=== PATIENT | female | born 1970 | race Caucasian/White ===

== ENCOUNTER 2016-10-07 19:34 | Emergency (ER) | payer BC ==
[~2016-10-07] VITALS: Ht 175.3 cm; Wt 113.4 kg
[~2016-10-07 19:34] MED LIST: ASP81TEC PO; ATOR10TA66; CCLB10TRX; CEPH500C PO; CYCL10TA9 PO; ETD400T; IBP800T PO; MECL12.579 PO; METO-351 PO; NAPR500T PO; OMEG500C PO; PANT40TA2 PO; PHENTERMINE 37.5 MG; PREMPRO; SANCTURA; SULF1TAB38; SULF1TAB38 PO; TRAM100T PO; TRM50T PO
[2016-10-07] MEDS ORDERED: NS IV 1000 ML 1,000 ML IV ONE (20:12)
[2016-10-07] MEDS ORDERED: KETOROLAC 30 MG/ML VIAL IVP ONE (20:15)
[2016-10-07] MEDS ORDERED: ONDANSETRON 4 MG/2 ML (SDV) Z0FRAN IVP ONE (20:15)
[2016-10-07 20:56] LABS: BASOPHILS % (AUTO) 1 % (0-10); EOSINOPHILS % (AUTO) 1 % (0-10); LYMPHOCYTES # (AUTO) 0.6 X 10^3 (1.0-4.0); LYMPHOCYTES % (AUTO) 16 % (12-44); MEAN CORPUSCULAR HEMOGLOBIN 30 PG (25-34); MEAN CORPUSCULAR HGB CONC 35 G/DL (32-36); MEAN CORPUSCULAR VOLUME 86 FL (80-99); MEAN PLATELET VOLUME 10.2 FL (7.4-10.4); MONOCYTES # (AUTO) 0.5 X 10^3 (0.0-1.0); MONOCYTES % (AUTO) 12 % (0-12); NEUTROPHILS # (AUTO) 2.8 X 10^3 (1.8-7.8); NEUTROPHILS % (AUTO) 72 % (42-75); PLATELET COUNT 191 10^3/uL (130-400); RED BLOOD COUNT 5.09 10^6/uL (4.35-5.85); RED CELL DISTRIBUTION WIDTH 12.5 % (10.0-14.5)
[2016-10-07] MEDS ORDERED: RX-OSELTAMIVIR 75 MG (TAMIFLU) BOX OF 10 PO STA (21:01)
--- NOTE | 2016-10-07 21:07 | ED General ---
General Chief Complaint: Fever-Adult/Adol Stated Complaint: NAUSEA/FEVER Nursing Triage Note: PT REPORTS NOT FEELING WELL SINCE YESTERDAY. SHE STATES SHE BEGAN HAVING FEVER, MALAISE, AND NAUSEA. SHE C/O SORE THROAT AND "CLOGGED EARS". PT HAS NOT TAKING ANY ANTIPYRETICS. Nursing Sepsis Screen: No Definite Risk Source of Information: Patient Exam Limitations: No Limitations History of Present Illness Time Seen by Provider: 19:54 Initial Comments This 46 woman presents to the emergency room with flulike syndrome including headache, nausea, dizziness, sore throat, fever, fatigue, cough, congestion, dyspnea, and vomiting. She denies diarrhea. She took Robitussin yesterday and a generic cough syrup today. She has not had much relief. She feels dehydrated. Allergies and Home Medications Allergies Coded Allergies: adhesive tape (Verified Allergy, Intermediate, RASH, 05/16/16) hydrocodone (Verified Adverse Reaction, Mild, N/V, 10/16/06) Home Medications Metoprolol Succinate 25 Mg Tab.er.24h, 25 MG PO DAILY, #30 Ref 3 Prescribed by: STEFANIA SHARMA on 04/01/16 1344 Pantoprazole Sodium 40 Mg Tablet.dr, 40 MG PO DAILY, #30 Ref 5 Prescribed by: MEGA ALFONSO on 05/20/16 0840 Constitutional: see HPI EENTM: see HPI Respiratory: see HPI Cardiovascular: no symptoms reported Gastrointestinal: see HPI Genitourinary: no symptoms reported Musculoskeletal: muscle pain Skin: no symptoms reported Psychiatric/Neurological: See HPI Hematologic/Lymphatic: No Symptoms Reported Past Wsuadgx-Pfpcce-Aunbck Hx Patient Social History Alcohol Use: Denies Use Recreational Drug Use: No Smoking Status: Current Everyday Smoker Type Used: Cigarettes 2nd Hand Smoke Exposure: No Recent Foreign Travel: No Contact w/Someone Who Travel: No Recent Infectious Disease Expo: No Recent Hopitalizations: No Immunizations Up To Date Tetanus Booster (TDap): Unknown PED Vaccines UTD: Yes Seasonal Allergies Seasonal Allergies: No Surgeries HX Surgeries: Yes (STENTS-KIDNEY STONES) Surgeries: Appendectomy, Cardiac (cardiac catheter), Gallbladder, Hysterectomy , Renal (ureteral stents), Tubal Ligation Respiratory Hx Respiratory Disorders: No Cardiovascular Hx Cardiac Disorders: Yes ("irregular heartbeat") Cardiac Disorders: Hypertension Neurological Hx Neurological Disorders: No Reproductive System Hx Reproductive Disorders: No Sexually Transmitted Disease: No HIV/AIDS: No Female Reproductive Disorders: Denies, 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 Genitourinary Hx Genitourinary Disorders: Yes Genitourinary Disorders: Kidney Stones Gastrointestinal Hx Gastrointestinal Disorders: Yes Gastrointestinal Disorders: Gastroesophageal Reflux Musculoskeletal Hx Musculoskeletal Disorders: Yes Musculoskeletal Disorders: Chronic Back Pain Endocrine Hx Endocrine Disorders: No HEENT HX ENT Disorders: Yes (CONTACTS/GLASSES, DENTURES) Loss of Vision: Bilateral Hearing Impairment: Denies Cancer Hx Cancer: No Psychosocial Hx Psychiatric Problems: No Integumentary HX Skin/Integumentary Disorder: No Blood Transfusions Hx Blood Disorders: No Adverse Reaction to a Blood Tr: No (N/A) Family Medical History Significant Family History: No Pertinent Family Hx Family Medial History: Cardiovascular disease 19 FATHER 19 MOTHER Diabetes mellitus 19 FATHER 19 MOTHER Physical Exam Vital Signs Vital Sign - Last 12Hours 10/07/16 19:45 Temp 102.0 Pulse 97 Resp 20 B/P (MAP) 146/94 Pulse Ox 93 O2 Delivery Room Air Capillary Refill : Less Than 3 Seconds General Appearance: WD/WN, Mild Distress (generally ill-appearing) HEENT: PERRL/EOMI, TMs Normal, Normal ENT Inspection, Pharynx Normal Neck: Normal Inspection Respiratory: Lungs Clear, Normal Breath Sounds, No Accessory Muscle Use, No Respiratory Distress Cardiovascular: Regular Rate, Rhythm, No Edema, No Murmur Gastrointestinal: Normal Bowel Sounds, Non Tender, Soft Extremity: Normal Inspection, No Pedal Edema Neurologic/Psychiatric: Alert, Oriented x3, No Motor/Sensory Deficits, Normal 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, 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 Skin: Normal Color, Warm/Dry Progress/Results/Core Measures Results/Orders Lab Results Laboratory Tests Test 10/07/16 20:10 10/07/16 20:49 Range/Units Group A Streptococcus Screen NEGATIVE NEGATIVE White Blood Count 4.0 L 4.3-11.0 10^3/uL Red Blood Count 5.09 4.35-5.85 10^6/uL Hemoglobin 15.2 11.5-16.0 G/DL Hematocrit 44 35-52 % Mean Corpuscular Volume 86 80-99 FL Mean Corpuscular Hemoglobin 30 25-34 PG Mean Corpuscular Hemoglobin Concent 35 32-36 G/DL Red Cell Distribution Width 12.5 10.0-14.5 % Platelet Count 191 130-400 10^3/uL Mean Platelet Volume 10.2 7.4-10.4 FL Neutrophils (%) (Auto) 72 42-75 % Lymphocytes (%) (Auto) 16 12-44 % Monocytes (%) (Auto) 12 0-12 % Eosinophils (%) (Auto) 1 0-10 % Basophils (%) (Auto) 1 0-10 % Neutrophils # (Auto) 2.8 1.8-7.8 X 10^3 Lymphocytes # (Auto) 0.6 L 1.0-4.0 X 10^3 Monocytes # (Auto) 0.5 0.0-1.0 X 10^3 Eosinophils # (Auto) 0.0 0.0-0.3 10^3/uL Basophils # (Auto) 0.0 0.0-0.1 10^3/uL Sodium Level 136 135-145 MMOL/L Potassium Level 4.2 3.6-5.0 MMOL/L Chloride Level 102 98-107 MMOL/L Carbon Dioxide Level 24 21-32 MMOL/L Anion Gap 10 5-14 MMOL/L Blood Urea Nitrogen 13 7-18 MG/DL Creatinine 0.95 0.60-1.30 MG/DL Estimat Glomerular Filtration Rate > 60 BUN/Creatinine Ratio 14 Glucose Level 111 H 70-105 MG/DL Calcium Level 9.5 8.5-10.1 MG/DL Total Bilirubin 0.7 0.1-1.0 MG/DL Aspartate Amino Transf (AST/SGOT) 25 5-34 U/L Alanine Aminotransferase (ALT/SGPT) 39 0-55 U/L Alkaline Phosphatase 63 40-136 U/L Total Protein 7.5 6.4-8.2 G/DL Albumin 4.6 H 3.2-4.5 G/DL Micro Results Microbiology 10/07/16 Influenza Types A,B Antigen (JERMAINE) - Final, Complete My Orders Orders - DELISA ÁLVAREZ MD Cbc With Automated Diff (10/07/16 20:12) Comprehensive Metabolic Panel (10/07/16 20:12) Rapid Strep A Screen (10/07/16 20:12) Influenza A And B Antigens (10/07/16 20:12) Saline Lock/Iv-Start (10/07/16 20:12) Ns Iv 1000 Ml (Sodium Chloride 0.9%) (10/07/16 20:12) Ketorolac Injection (Toradol Injection) (10/07/16 20:15) Ondansetron Injection (Zofran Injectio (10/07/16 20:15) Chest Pa/Lat (2 View) (10/07/16 20:12) Rx-Oseltamivir Caps (Rx-Tamiflu Caps) (10/07/16 21:01) Rx-Ondansetron Po (Rx-Zofran Po) (10/07/16 21:15) Medications Given in ED Current Medications Medications Dose Ordered Sig/Rachael Route Start Time Stop Time Status Last Admin Dose Admin Ketorolac Tromethamine 30 mg ONCE ONCE IVP 10/07/16 20:15 10/07/16 20:18 DC 10/07/16 20:38 30 MG Ondansetron HCl 4 mg ONCE ONCE IVP 10/07/16 20:15 10/07/16 20:18 DC 10/07/16 20:38 4 MG Ondansetron HCl 4 mg Q4HR PRN SL 10/07/16 21:15 10/07/16 21:47 DC 10/07/16 21:30 4 MG Sodium Chloride 1,000 ml @ 0 mls/hr Q0M ONCE IV 10/07/16 20:12 10/07/16 20:18 DC 10/07/16 20:38 0 MLS/HR Vital Signs/I&O Vital Sign - Last 12Hours 10/07/16 19:45 Temp 102.0 Pulse 97 Resp 20 B/P (MAP) 146/94 Pulse Ox 93 O2 Delivery Room Air Blood Pressure Mean: 111 Progress Note : Progress Note Patient received a liter of IV fluids for hydration. Toradol was given for myalgia. Influenza screen was positive for influenza B. Tamiflu was initiated and a take-home pack was dispensed. A take-home packet of Zofran was also dispensed. Diagnostic Imaging Diagonstic Imaging: Xray Plain Films/CT/US/NM/MRI: chest Comments Chest x-ray viewed by me and report reviewed. See report below: NAME: [facility] REC#: [id number] PT STATUS: REG ER : 1970 PHYSICIAN: DELISA ÁLVAREZ MD ADMIT DATE: 10/07/16/ER Signed Date of Exam: 10/07/16 CHEST PA/LAT (2 VIEW) INDICATION: Fever, cough and malaise. EXAM: PA and lateral chest obtained at 8:54 hours p.m. FINDINGS: The heart and mediastinal silhouette are normal in appearance. The lungs are clear. There is no pneumothorax or pleural fluid. IMPRESSION: Negative chest. Dictated by: Dictated on workstation # [id number] Dict: 10/07/162107 Trans: 10/07/162118 [facility] [id number] Interpreted by: PO SÁNCHEZ MD Electronically signed by:PO SÁNCHEZ MD 10/07/162118 Departure Impression Impression: Primary Impression: Influenza B Additional Impression: Nausea and vomiting Qualified Codes: R11.2 - Nausea with vomiting, unspecified Disposition: HOME, SELF-CARE Condition: Improved Departure-Patient Inst. Decision time for Depature: 21:05 Referrals: RADHA FONTANA MD (PCP/Family) Primary Care Physician Patient Instructions: Flu, Adult (DC) Add. Discharge Instructions: Drink plenty of clear liquids. Complete the entire 5 day course of Tamiflu. Use Zofran (ondansetron) dissolved under the tongue every 4 hours as needed for nausea and vomiting. Avoid contact with other people until symptoms, especially fever, resolved. Return to emergency room if you have worsening symptoms. You may use ibuprofen up to 600 mg every 6 hours as needed for pain or fever. Add Tylenol (acetaminophen) up to 1000 mg every 6 hours as needed for additional pain or fever relief. All discharge instructions reviewed with patient and/or family. Voiced understanding. Work/School Note: Work Release Form Date Seen in the Emergency Department: Oct 07, 2016 Return to Work: Oct 13, 2016 DELISA ÁLVAREZ MD Oct 07, 2016 21:07
--- NOTE | 2016-10-07 21:10 | Diagnostic Imaging Report ---
INDICATION: Fever, cough and malaise. EXAM: PA and lateral chest obtained at 8:54 hours p.m. FINDINGS: The heart and mediastinal silhouette are normal in appearance. The lungs are clear. There is no pneumothorax or pleural fluid. IMPRESSION: Negative chest. Dictated by: Dictated on workstation # [id number]
[2016-10-07] MEDS ORDERED: RX-ONDANSETRON 4 MG ODT (ZOFRAN) PPK #4 SL PRN (21:15)
[2016-10-07 21:17] LABS: ALANINE AMINOTRANSFERASE 39 U/L (0-55); ALBUMIN 4.6 G/DL (3.2-4.5); ANION GAP 10 MMOL/L (5-14); ASPARTATE AMINO TRANSFERASE 25 U/L (5-34); BILIRUBIN,TOTAL 0.7 MG/DL (0.1-1.0); BLOOD UREA NITROGEN 13 MG/DL (7-18); BUN/CREATININE RATIO 14; CALCIUM 9.5 MG/DL (8.5-10.1); CARBON DIOXIDE 24 MMOL/L (21-32); CHLORIDE 102 MMOL/L (98-107); CREATININE SERUM 0.95 MG/DL (0.60-1.30); GFR ESTIMATED > 60; GLUCOSE 111 MG/DL (70-105); POTASSIUM 4.2 MMOL/L (3.6-5.0); SODIUM 136 MMOL/L (135-145); TOTAL PROTEIN 7.5 G/DL (6.4-8.2)
[2016-10-07 21:35] VITALS: BP 146/94
== END 2016-10-07 21:35 | disposition home or self-care (01) ==
LOC: EDUNIT# 19:34 → ER 19:37
DX: J10.1 Influenza due to other identified influenza virus with other respiratory manifestations (principal); I10 Essential (primary) hypertension; F17.210 Nicotine dependence, cigarettes, uncomplicated
CPT/HCPCS: 36415; 71020; 80053; 85025; 87430; 87804; 96361; 96374; 96375

== ENCOUNTER 2017-08-11 21:00 | Emergency (ER) | payer BC ==
[~2017-08-11] VITALS: Ht 175.3 cm; Wt 113.5 kg
[~2017-08-11 21:00] MED LIST changes: +NAPR-1071 PO; -NAPR500T PO
--- NOTE | 2017-08-11 21:26 | ED Lower Extremity ---
General Chief Complaint: Lower Extremity Stated Complaint: L HEEL PAIN, SWELLING History of Present Illness Date Seen by Provider: Aug 11, 2017 Time Seen by Provider: 21:19 Initial Comments Patient here with complaints of pain to the arch of her left foot for 3 months. Patient denies injury, reports increased pain with exercises for plantar fasciitis. Onset: other (3 months) Pain/Injury Location: left foot Method of Injury: unknown Modifying Factors: Improves With Cold Therapy, Worse With Movement, Improves With Rest Allergies and Home Medications Allergies Coded Allergies: adhesive tape (Verified Allergy, Intermediate, RASH, 05/16/16) hydrocodone (Verified Adverse Reaction, Mild, N/V, 10/16/06) Home Medications Metoprolol Succinate 25 Mg Tab.er.24h, 25 MG PO DAILY, #30 Ref 3 Prescribed by: STEFANIA SHARMA on 04/01/16 1344 Pantoprazole Sodium 40 Mg Tablet.dr, 40 MG PO DAILY, #30 Ref 5 Prescribed by: MEGA ALFONSO on 05/20/16 0840 Constitutional: no symptoms reported, see HPI EENTM: see HPI, no symptoms reported Respiratory: no symptoms reported, see HPI Cardiovascular: no symptoms reported, see HPI, other (history of a murmur) Genitourinary: no symptoms reported Musculoskeletal: other (pain to the arch of the left foot) Skin: no symptoms reported, see HPI Psychiatric/Neurological: No Symptoms Reported, See HPI Past Rstejbm-Pydvsx-Loeunj Hx Patient Social History Type Used: Cigarettes 2nd Hand Smoke Exposure: No Recent Foreign Travel: No Contact w/Someone Who Travel: No Recent Hopitalizations: No Immunizations Up To Date Tetanus Booster (TDap): Unknown PED Vaccines UTD: Yes Seasonal Allergies Seasonal Allergies: No Surgeries Surgeries: Appendectomy, Cardiac, Gallbladder, Hysterectomy, Renal, Tubal Ligation Respiratory Currently Using CPAP: No Currently Using BIPAP: No Cardiovascular Cardiac Disorders: Hypertension Reproductive System Hx Reproductive Disorders: No Sexually Transmitted Disease: No HIV/AIDS: No Female Reproductive Disorders: Denies, 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 Genitourinary Genitourinary Disorders: Kidney Stones Gastrointestinal Gastrointestinal Disorders: Gastroesophageal Reflux Musculoskeletal Musculoskeletal Disorders: Chronic Back Pain HEENT Loss of Vision: Bilateral Hearing Impairment: Denies Blood Transfusions Adverse Reaction to a Blood Tr: No (N/A) Family Medical History Significant Family History: No Pertinent Family Hx Family Medial History: Cardiovascular disease 19 FATHER 19 MOTHER Diabetes mellitus 19 FATHER 19 MOTHER Physical Exam Vital Signs Capillary Refill : General Appearance: WD/WN, no apparent distress HEENT: PERRL/EOMI Cardiovascular: normal peripheral pulses, regular rate, rhythm, systolic murmur Respiratory: normal breath sounds, no respiratory distress Gastrointestinal: normal bowel sounds, non tender Back: normal inspection, no CVA tenderness, no vertebral tenderness Feet: left foot pain (pain to the medial side of the left plantar area), left foot soft tissue tenderness Neurologic/Tendon: normal sensation, normal motor functions (physical exam pulse low as pain to the medial side), normal tendon functions Neurologic/Psychiatric: no motor/sensory deficits, alert, normal mood/affect, oriented x 3 Skin: normal color, warm/dry Lymphatic: no adenopathy Progress/Results/Core Measures Results/Orders My Orders Orders - SUNSHINE ARANDA APRN Foot, Left, 3 Views (08/11/17 21:18) Departure Impression Impression: Primary Impression: Plantar fasciitis Disposition: HOME, SELF-CARE Condition: Stable (tripped) Departure-Patient Inst. Decision time for Depature: 21:35 Referrals: RADHA FONTANA MD (PCP/Family) Primary Care Physician Patient Instructions: Heel Pain (Caused by Plantar Fasciitis) Add. Discharge Instructions: Take steroids as directed. Call for appointment time with one of our store receiving specialist Dr. Baird or Dr. Bergman for appointment. Continue your exercises. Obtain shoe inserts for arch support. All discharge instructions reviewed with patient and/or family. Voiced understanding. Scripts Methylprednisolone (Medrol) 4 Mg Tab.ds.pk 4 MG PO UD, #1 PKG Prov: SUNSHINE ARANDA APRN 08/11/17 SUNSHINE ARANDA APRN Aug 11, 2017 21:26
[2017-08-11] MEDS ORDERED: METH4TAB PO (21:34)
--- NOTE | 2017-08-11 21:35 | Diagnostic Imaging Report ---
INDICATION: Medial left foot pain for several days. FINDINGS: Three views of the left foot show no fracture, dislocation or other abnormality. IMPRESSION: Normal left foot. Dictated by: Dictated on workstation # [id number]
[2017-08-11 21:45] VITALS: BP 148/84
== END 2017-08-11 21:45 | disposition home or self-care (01) ==
LOC: EDUNIT# 21:00 → ER 21:01
DX: M72.2 Plantar fascial fibromatosis (principal); I10 Essential (primary) hypertension; K21.9 Gastro-esophageal reflux disease without esophagitis; Z82.49 Family history of ischemic heart disease and other diseases of the circulatory system; Z87.442 Personal history of urinary calculi; Z88.5 Allergy status to narcotic agent; Z91.048 Other nonmedicinal substance allergy status; Z90.49 Acquired absence of other specified parts of digestive tract; Z98.51 Tubal ligation status; Z90.710 Acquired absence of both cervix and uterus
CPT/HCPCS: 73630; 99283

== ENCOUNTER → 2018-03-15 | Outpatient (CLI) | payer BC ==
[~2018-03-15] MED LIST changes: +METH4TAB PO
--- NOTE | 2018-03-15 19:15 | Diagnostic Imaging Report ---
INDICATION: Hypothyroidism. FINDINGS: Right lobe of the thyroid measures 4.2 x 1.5 x 1.3 cm. Left lobe measures 4.4 x 1.4 x 1.3 cm. There is no discrete mass in either lobe. IMPRESSION: Unremarkable thyroid ultrasound. Dictated by: Dictated on workstation # [id number]
== END ==
LOC: RAD 15:07
PROVIDERS: ATTEND Nurse Practitioner Family
DX: E03.9 Hypothyroidism, unspecified (principal)
CPT/HCPCS: 76536

== ENCOUNTER 2019-06-05 12:28 | Emergency (ER) | payer BC ==
[~2019-06-05] VITALS: Ht 175 cm; Wt 109.5 kg
--- NOTE | 2019-06-05 13:11 | ED Lower Extremity ---
General Chief Complaint: Lower Extremity Stated Complaint: L CALF PAIN Nursing Triage Note: Patient ambulatory to ER FT1 with spouse with complaint of left lower leg pain. Patient states approximately 1 week ago she had spasms to the left lower leg and then noticed a bruise behind her knee with a hard lump. She has had increased pain to the left lower leg over the last several days. Nursing Sepsis Screen: No Definite Risk Source: patient, spouse Exam Limitations: no limitations History of Present Illness Date Seen by Provider: Jun 05, 2019 Time Seen by Provider: 13:11 Initial Comments 41-year-old female patient presents with complaints of left lateral knee pain. Patient reports one week ago she began having spasms in the left calf followed by a bruising to the left posterior knee and calf. Reports feeling a large lump which has improved in size and discoloration. Patient does complain of increased pain to this area. Denies known injury. Denies claudication. Location Injury Occurred: denies known injury Onset: last week Pain/Injury Location: left leg, left knee Method of Injury: unknown Modifying Factors: Worse With Movement, Worse With Other (worse with palpation) Allergies and Home Medications Allergies Coded Allergies: adhesive tape (Verified Allergy, Intermediate, RASH, 05/16/16) hydrocodone (Verified Adverse Reaction, Mild, N/V, 10/16/06) Home Medications Methylprednisolone 4 Mg Tab.ds.pk, 4 MG PO UD Prescribed by: SNUSHINE ARANDA on 08/11/172133 Metoprolol Succinate 25 Mg Tab.er.24h, 25 MG PO DAILY Prescribed by: STEFANIA SHARMA on 04/01/16 1344 Pantoprazole Sodium 40 Mg Tablet.dr, 40 MG PO DAILY Prescribed by: MEGA ALFONSO on 05/20/16 0840 Patient Home Medication List Home Medication List Reviewed: Yes Review of Systems Constitutional: No chills, No dizziness, No fever Respiratory: No cough, No dyspnea on exertion, No orthopnea, No short of breath, No wheezing Cardiovascular: No chest pain, No edema, No palpitations, No syncope Gastrointestinal: no symptoms reported Genitourinary: no symptoms reported Musculoskeletal: see HPI, joint pain Skin: see HPI, other (ecchymosis to the left posterior knee) Psychiatric/Neurological: Denies Numbness, Denies Paresthesia, Denies Tingling, Denies Weakness All Other Systems Reviewed Negative Unless Noted: Yes (Negative excepted noted.) Past Fmzpapy-Ypiqik-Npzexf Hx Past Med/Social Hx: Reviewed Nursing Past Med/Soc Hx Patient Social History Type Used: Cigarettes 2nd Hand Smoke Exposure: No Recent Foreign Travel: No Contact w/Someone Who Travel: No Recent Infectious Disease Expo: No Recent Hopitalizations: No Immunizations Up To Date Tetanus Booster (TDap): Unknown PED Vaccines UTD: Yes Seasonal Allergies Seasonal Allergies: No Past Medical History Surgeries: Yes (STENTS-KIDNEY STONES) Appendectomy, Cardiac, Gallbladder, Hysterectomy, Renal, Tubal Ligation Respiratory: No Currently Using CPAP: No Currently Using BIPAP: No Cardiac: Yes ("irregular heartbeat") Hypertension Neurological: No Reproductive Disorders: No Female Reproductive Disorders: Denies, Endometriosis [employer]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 Sexually Transmitted Disease: No HIV/AIDS: No Kidney Stones Gastrointestinal: Yes Gastroesophageal Reflux Musculoskeletal: Yes Chronic Back Pain Endocrine: No Loss of Vision: Bilateral Hearing Impairment: Denies Cancer: No Psychosocial: No Integumentary: No Blood Disorders: No Adverse Reaction/Blood Tranf: No (N/A) Family Medical History Reviewed Nursing Family Hx Cardiovascular disease 19 FATHER 19 MOTHER Diabetes mellitus 19 FATHER 19 MOTHER No Pertinent Family Hx Physical Exam Vital Signs Vital Signs - First Documented 06/05/19 12:52 Temp 36.8 Pulse 61 Resp 16 B/P (MAP) 145/69 (94) Pulse Ox 100 O2 Delivery Room Air Capillary Refill : Less Than 3 Seconds Height, Weight, BMI Height: 5'9.00" Weight: 250lbs. 4.0oz. [id number]; 35.00 BMI Method:Stated General Appearance: WD/WN, no apparent distress Cardiovascular: normal peripheral pulses, regular rate, rhythm, no edema, no murmur Respiratory: lungs clear, normal breath sounds, no respiratory distress, no accessory muscle use Gastrointestinal: normal bowel sounds, non tender, soft; No distended Hips: bilateral hip non-tender, bilateral hip normal inspection, bilateral hip normal range of motion, bilateral hip no evidence of injury Legs: right leg non-tender, right leg normal inspection; bilateral leg normal range of motion; right leg no evidence of injury; left leg ecchymosis (left posterolateral calf subacute ecchymosis with TTP.), left leg pain, left leg soft tissue tenderness Knees: right knee non-tender, right knee normal inspection; bilateral knee normal range of motion; right knee no evidence of injury; left knee ecchymosis (left posterolateral knee shows mild subacute ecchymosis and tenderness. no popliteal swelling or tenderness.), left knee pain, left knee soft tissue tenderness Ankles: bilateral ankle non-tender, bilateral ankle normal inspection, bilateral ankle normal range of motion, bilateral ankle no evidence of injury Feet: bilateral foot non-tender, bilateral foot normal inspection, bilateral foot normal range of motion, bilateral foot no evidence of injury Neurologic/Tendon: normal sensation, normal motor functions, normal tendon functions, responds to pain, no evidence tendon injury Neurologic/Psychiatric: no motor/sensory deficits, alert, normal mood/affect, oriented x 3 Skin: normal color, warm/dry; No cyanosis, No cool; ecchymosis (see knee and leg exam above); No mottled Progress/Results/Core Measures Results/Orders Lab Results Laboratory Tests Test 06/05/19 13:59 Range/Units White Blood Count 4.4 4.3-11.0 10^3/uL Red Blood Count 4.72 4.35-5.85 10^6/uL Hemoglobin 13.8 11.5-16.0 G/DL Hematocrit 40 35-52 % Mean Corpuscular Volume 85 80-99 FL Mean Corpuscular Hemoglobin 29 25-34 PG Mean Corpuscular Hemoglobin Concent 34 32-36 G/DL Red Cell Distribution Width 13.3 10.0-14.5 % Platelet Count 211 130-400 10^3/uL Mean Platelet Volume 10.5 H 7.4-10.4 FL Neutrophils (%) (Auto) 45 42-75 % Lymphocytes (%) (Auto) 44 12-44 % Monocytes (%) (Auto) 9 0-12 % Eosinophils (%) (Auto) 2 0-10 % Basophils (%) (Auto) 1 0-10 % Neutrophils # (Auto) 1.9 1.8-7.8 X 10^3 Lymphocytes # (Auto) 1.9 1.0-4.0 X 10^3 Monocytes # (Auto) 0.4 0.0-1.0 X 10^3 Eosinophils # (Auto) 0.1 0.0-0.3 10^3/uL Basophils # (Auto) 0.0 0.0-0.1 10^3/uL Sodium Level 142 135-145 MMOL/L Potassium Level 3.8 3.6-5.0 MMOL/L Chloride Level 107 98-107 MMOL/L Carbon Dioxide Level 24 21-32 MMOL/L Anion Gap 11 5-14 MMOL/L Blood Urea Nitrogen 12 7-18 MG/DL Creatinine 0.88 0.60-1.30 MG/DL Estimat Glomerular Filtration Rate > 60 BUN/Creatinine Ratio 14 Glucose Level 84 70-105 MG/DL Calcium Level 9.4 8.5-10.1 MG/DL Corrected Calcium 9.0 8.5-10.1 MG/DL Total Bilirubin 0.7 0.1-1.0 MG/DL Aspartate Amino Transf (AST/SGOT) 20 5-34 U/L Alanine Aminotransferase (ALT/SGPT) 35 0-55 U/L Alkaline Phosphatase 61 40-136 U/L Total Creatine Kinase 61 29-168 U/L Total Protein 6.8 6.4-8.2 GM/DL Albumin 4.5 3.2-4.5 GM/DL My Orders Orders - XIOMY DE LA CRUZ Ed Iv/Invasive Line Start (06/05/19 13:49) Cbc With Automated Diff (06/05/19 13:49) Comprehensive Metabolic Panel (06/05/19 13:49) Creatine Kinase (06/05/19 13:49) Ct Extremity Lower Left W (06/05/19 13:49) Iohexol Injection (Omnipaque 350 Mg/Ml 1 (06/05/19 14:30) Received Contrast (Hold Metformin- Contr (06/05/19 14:30) Sodium Chloride Flush (Catheter Flush Sy (06/05/19 14:30) Ns (Ivpb) (Sodium Chloride 0.9% Ivpb Bag (06/05/19 14:30) Medications Given in ED Current Medications Medications Dose Ordered Sig/Rachael Route Start Time Stop Time Status Last Admin Dose Admin Iohexol 100 ml ONCE ONCE IV 06/05/19 14:30 06/05/19 14:31 DC 06/05/19 14:21 100 ML Sodium Chloride 10 ml NEEDED PRN IV 06/05/19 14:30 06/05/19 15:34 DC 06/05/19 14:21 10 ML Sodium Chloride 100 ml ONCE ONCE IV 06/05/19 14:30 06/05/19 14:31 DC 06/05/19 14:21 80 ML Vital Signs/I&O 06/05/19 06/05/19 12:52 15:33 Temp 36.8 36.8 Pulse 61 52 Resp 16 14 B/P (MAP) 145/69 (94) 116/67 Pulse Ox 100 100 O2 Delivery Room Air Room Air Blood Pressure Mean: 94 POS Diagnostic Imaging Diagonstic Imaging: CT Plain Films/CT/US/NM/MRI: other (LLE) Comments POSDate of Exam:06/05/19 CT EXTREMITY LOWER LEFT W Clinical indications: Patient with hematoma of the left proximal lateral tibia and fibula just inferior to left knee joint approximately 1-1/2 weeks after popping following muscle spasm. Exam: CT scan of the left lower extremity focused on the knee performed with 100 mL of Omnipaque 350 IV contrast. Sagittal and coronal reformatted images are created. Auto Exposure Controls were utilized during the CT exam to meet ALARA standards for radiation dose reduction. Comparison: None. Findings: There is no acute fracture or dislocation of the knee. There is a chronic small calcification seen superiorly adjacent to the fibula. There is no significant knee effusion. There is an area of mild soft tissue fat stranding which is lateral and posteriorly adjacent to the fibula below the level of the knee joint. There is no fluid fluid collection or abscess seen. There is no abnormal IV contrast enhancement seen. Partial contrast opacification of the popliteal vein and calf venous structures. Impression: 1: There is a small amount of fat stranding seen laterally adjacent to the the fibula which may be related to patient's symptoms. There is no fluid collection or abnormal enhancement seen. 2: There is no acute fracture or dislocation. There is no significant knee effusion. 3: There is a chronic calcification seen superiorly and posterior adjacent to the fibula. Dictated on workstation # [id number] Reviewed: Reviewed by Me (radiology report reviewed by me) Departure Communication (Admissions) Patient seen and evaluated. Labs as well as CT left lower extremity obtained. Findings discussed with the patient. Patient reports improvement in symptoms. Plan for discharge to home with follow-up as an outpatient with her primary care provider. Patient call for appointment time. Impression Primary Impression: Muscle cramps Disposition: 01 HOME, SELF-CARE Condition: Improved Departure-Patient Inst. Decision time for Depature: 14:56 Referrals: RADHA JAMES MD (PCP/Family) Primary Care Physician Patient Instructions: Muscle Spasms (DC) Add. Discharge Instructions: All discharge instructions reviewed with patient and/or family. Voiced understanding. Vitamin B Complex (containing pyridoxine/vitamin B6) over the counter as directed by the community fundraiser for muscle cramping. Elevate the left knee on pillows. Use a heating pad as needed for pain and muscle cramping. Follow-up with Dr. James as an outpatient for recheck. Return in the emergency department for worsened symptoms or any other concerns. Images Extremities-Lower 1 - Ecchymosis, Tenderness, Other-See Progress Note XIOMY DE LA CRUZ Jun 05, 2019 13:11 POS
[2019-06-05 14:06] LABS: BASOPHILS % (AUTO) 1 % (0-10); EOSINOPHILS # (AUTO) 0.1 10^3/uL (0.0-0.3); EOSINOPHILS % (AUTO) 2 % (0-10); HEMATOCRIT 40 % (35-52); HEMOGLOBIN 13.8 G/DL (11.5-16.0); LYMPHOCYTES # (AUTO) 1.9 X 10^3 (1.0-4.0); LYMPHOCYTES % (AUTO) 44 % (12-44); MEAN CORPUSCULAR HEMOGLOBIN 29 PG (25-34); MEAN CORPUSCULAR HGB CONC 34 G/DL (32-36); MEAN CORPUSCULAR VOLUME 85 FL (80-99); MEAN PLATELET VOLUME 10.5 FL (7.4-10.4); MONOCYTES # (AUTO) 0.4 X 10^3 (0.0-1.0); MONOCYTES % (AUTO) 9 % (0-12); NEUTROPHILS # (AUTO) 1.9 X 10^3 (1.8-7.8); NEUTROPHILS % (AUTO) 45 % (42-75); PLATELET COUNT 211 10^3/uL (130-400); RED CELL DISTRIBUTION WIDTH 13.3 % (10.0-14.5); WHITE BLOOD COUNT 4.4 10^3/uL (4.3-11.0)
[2019-06-05 14:25] LABS: ALANINE AMINOTRANSFERASE 35 U/L (0-55); ALBUMIN 4.5 GM/DL (3.2-4.5); ALKALINE PHOSPHATASE 61 U/L (40-136); BILIRUBIN,TOTAL 0.7 MG/DL (0.1-1.0); BUN/CREATININE RATIO 14; CALCIUM 9.4 MG/DL (8.5-10.1); CARBON DIOXIDE 24 MMOL/L (21-32); CHLORIDE 107 MMOL/L (98-107); CREATINE KINASE 61 U/L (29-168); CREATININE SERUM 0.88 MG/DL (0.60-1.30); GFR ESTIMATED > 60; GLUCOSE 84 MG/DL (70-105); POTASSIUM 3.8 MMOL/L (3.6-5.0); SODIUM 142 MMOL/L (135-145); TOTAL PROTEIN 6.8 GM/DL (6.4-8.2)
[2019-06-05] MEDS ORDERED: HOLD METFORMIN - RECEIVED CONTRAST 20 ML VIAL IV SCH (14:30)
[2019-06-05] MEDS ORDERED: IOHEXOL 350 MG/ML 100 ML (OMNIPAQUE 350) VIAL IV ONE (14:30)
[2019-06-05] MEDS ORDERED: NS 100 ML (IVPB) BAG IV ONE (14:30)
[2019-06-05] MEDS ORDERED: CATHETER FLUSH 10 ML SYR IV PRN (14:30)
--- NOTE | 2019-06-05 14:39 | Diagnostic Imaging Report ---
Clinical indications: Patient with hematoma of the left proximal lateral tibia and fibula just inferior to left knee joint approximately 1-1/2 weeks after popping following muscle spasm. Exam: CT scan of the left lower extremity focused on the knee performed with 100 mL of Omnipaque 350 IV contrast. Sagittal and coronal reformatted images are created. Auto Exposure Controls were utilized during the CT exam to meet ALARA standards for radiation dose reduction. Comparison: None. Findings: There is no acute fracture or dislocation of the knee. There is a chronic small calcification seen superiorly adjacent to the fibula. There is no significant knee effusion. There is an area of mild soft tissue fat stranding which is lateral and posteriorly adjacent to the fibula below the level of the knee joint. There is no fluid fluid collection or abscess seen. There is no abnormal IV contrast enhancement seen. Partial contrast opacification of the popliteal vein and calf venous structures. Impression: 1: There is a small amount of fat stranding seen laterally adjacent to the the fibula which may be related to patient's symptoms. There is no fluid collection or abnormal enhancement seen. 2: There is no acute fracture or dislocation. There is no significant knee effusion. 3: There is a chronic calcification seen superiorly and posterior adjacent to the fibula. Dictated by: Dictated on workstation # [id number]
[2019-06-05 15:33] VITALS: BP 116/67
== END 2019-06-05 15:34 | disposition home or self-care (01) ==
LOC: EDUNIT# 12:28 → ER 12:29
DX: R25.2 Cramp and spasm (principal); I10 Essential (primary) hypertension; K21.9 Gastro-esophageal reflux disease without esophagitis; Z88.8 Allergy status to other drugs, medicaments and biological substances; Z87.442 Personal history of urinary calculi; Z88.5 Allergy status to narcotic agent; Z79.52 Long term (current) use of systemic steroids; Z90.49 Acquired absence of other specified parts of digestive tract; Z90.710 Acquired absence of both cervix and uterus; Z98.51 Tubal ligation status; Z82.49 Family history of ischemic heart disease and other diseases of the circulatory system
CPT/HCPCS: 36415; 73701; 80053; 82550; 85025

== ENCOUNTER → 2022-04-08 | Outpatient (CLI) | payer BC ==
[~2022-04-08] MED LIST changes: +MECL-215 PO; -MECL12.579 PO
--- NOTE | 2022-04-09 09:52 | Diagnostic Imaging Report ---
Indication: Routine screening Comparison is made with prior mammogram from 10/22/2015 and 09/14/2014. 2-D and 3-D bilateral screening mammography was performed with CAD. CAD is utilized. The current study was also evaluated with a Computer Aided Detection (CAD) system. Scattered fibroglandular densities are identified bilaterally. The parenchymal pattern is stable. No mass or malignant-appearing microcalcifications are seen. Axillae are unremarkable. IMPRESSION: BI-RADS Category 1 No mammographic features suspicious for malignancy are identified. ACR BI-RADS Category 1: Negative. Result letter will be mailed to the patient. Note: At least 10% of breast cancer is not imaged by mammography. Dictated by: Dictated on workstation # [id number]
== END ==
LOC: RAD 15:45
PROVIDERS: ATTEND Family Medicine
DX: Z12.31 Encounter for screening mammogram for malignant neoplasm of breast (principal)
CPT/HCPCS: 77063; 77067